=== PATIENT | male | born 1980 | race Caucasian/White ===

== ENCOUNTER 2020-04-24 02:45 | Emergency (ER) | payer OTHER ==
[2020-04-24 03:10] VITALS: BP 134/87; TEMP 98.7; BMI 25.7
[2020-04-24] MEDS ORDERED: diphenhydrAMINE HCL 50 MG CAPSULE PO ONE (03:39)
[2020-04-24] MEDS ORDERED: predniSONE 20 MG TABLET (UD) PO ONE (03:39)
[2020-04-24] MEDS ORDERED: FAMOTIDINE 20 MG TABLET PO ONE (03:39)
--- NOTE | 2020-04-24 03:45 | PDOC ---
History of Present Illness - General Chief Complaint: Rash Stated Complaint: RASH Time Seen by Provider: 04/24/20 03:19 History Source: Patient - History of Present Illness Initial Comments: 04/24/20 03:45 39-year-old male complaining of rash to body with lip swelling. Patient reports he is unsure he if he was bit by a spider. Denies exposure to new food or allergen. No tongue swelling or throat swelling, no difficulty breathing. No past medical history Patient denies taking any medication at home. Past History - Medical History Home Medications: Ambulatory Orders Diphenhydramine HCl [Benadryl -] 25 mg PO Q8H PRN #21 capsule 04/24/20 Famotidine [Pepcid -] 40 mg PO DAILY #7 tablet 04/24/20 Prednisone [Prednisone 50 MG TABLETS] 50 mg PO DAILY #4 tablet 04/24/20 - Psycho-Social/Smoking History Smoking History: Unknown if ever smoked - Substance Abuse Hx (Audit-C & DAST Scrn) How often the patient has a drink containing alcohol: Monthly or less Score: In Men: 4 or > Positive; In Women: 3 or > Positive: 1 Screen Result (Pos requires Nsg. Audit-10AR): Negative *Physical Exam - Vital Signs Last Vital Signs Temp Pulse Resp BP Pulse Ox 98.7 F 85 18 134/87 100 04/24/20 03:01 04/24/20 03:01 04/24/20 03:01 04/24/20 03:01 04/24/20 03:01 - Physical Exam General Appearance: Yes: Appropriately Dressed HEENT: positive: Other (upper lip swelling. throat red, uvula midlibe) Respiratory/Chest: positive: Lungs Clear, Normal Breath Sounds Cardiovascular: positive: Regular Rhythm, Regular Rate Integumentary: positive: Normal Color, Dry, Warm Neurologic: positive: Fully Oriented, Alert, Normal Mood/Affect Medical Decision Making - Medical Decision Making 04/24/20 03:47 Allergic reaction P: benadryl prednisone pepcid Discharge - Discharge Information Problems reviewed: Yes Clinical Impression/Diagnosis: Allergic reaction Qualifiers: Encounter type: initial encounter Qualified Code(s): T78.40XA - Allergy, unspecified, initial encounter Disposition: HOME - Additional Discharge Information Prescriptions: Diphenhydramine HCl [Benadryl -] 25 mg PO Q8H PRN #21 capsule PRN Reason: Allergies Famotidine [Pepcid -] 40 mg PO DAILY #7 tablet Prednisone [Prednisone 50 MG TABLETS] 50 mg PO DAILY #4 tablet - Follow up/Referral - Patient Discharge Instructions Patient Printed Discharge Instructions: DI for General Allergic Reactions Additional Instructions: Take Benadryl every 6 to 8 hours as needed for itching. Take the next dose of prednisone tomorrow. Prednisone as once a day. Take Pepcid once daily. Follow-up with your primary doctor soon as possible Return to the emergency room for any worsening symptoms - Post Discharge Activity Work/Back to School Note: Back to Work
[2020-04-24] MEDS ORDERED: diphenhydrAMINE HCL 25 MG CAPSULE (FP) PO ONE (03:54)
[2020-04-24 04:49] VITALS: PULSE 82
== END 2020-04-24 04:35 | disposition home or self-care (01) ==
LOC: JER 02:45
DX: T78.40XA Allergy, unspecified, initial encounter (principal)
CPT/HCPCS: 99283-25

== ENCOUNTER 2024-05-31 17:49 | Emergency (ER) | payer OTHER ==
[2024-05-31 18:12] VITALS: RESP 18; TEMP 100; BMI 29.0
[2024-05-31 19:09] LABS: BASO % 0.4 % (0-2.0); EOS % 1.3 % (0-4.5); HEMATOCRIT 42.3 % (35.4-49); HEMOGLOBIN 14.7 GM/dL (11.7-16.9); LYMPH % 19.4 % (8-40); MCH 30.6 pg (25.7-33.7); MCHC 34.6 g/dl (32.0-35.9); MEAN CELL VOLUME 88.3 fl (80-96); MEAN PLT VOLUME 8.9 fl (7.5-11.1); MONO % 9.3 % (3.8-10.2); NEUT % 69.6 % (42.8-82.8); PLATELET COUNT 239 10^3/uL (134-434); RBC 4.79 M/mm3 (4.00-5.60); WHITE BLOOD COUNT 10.4 K/mm3 (4.0-10.0)
[2024-05-31 19:36] LABS: POTASSIUM 3.8 mmol/L (3.5-5.1)
[2024-05-31 19:37] LABS: CALCIUM 8.5 mg/dL (8.5-10.1)
[2024-05-31 19:38] LABS: ALBUMIN 3.9 g/dl (3.4-5.0); BLOOD UREA NITROGEN 18.7 mg/dL (7-18)
[2024-05-31 19:41] LABS: CREATININE 0.9 mg/dL (0.55-1.3)
[2024-05-31 19:42] LABS: BILIRUBIN,TOTAL 0.7 mg/dL (0.2-1); TOT PROT 7.9 g/dl (6.4-8.2)
[2024-05-31] MEDS ORDERED: PIPERACILLIN/TAZOB 4.5 GM 4.5 GM/100 ML BAG IVPB ONE (20:13)
[2024-05-31] MEDS: PIPERACILLIN/TAZOBACTAM 4.5 GM VIAL IVPB ONE (20:17)
[2024-05-31] MEDS: ACETAMINOPHEN 325 MG TABLET (FP) PO ONE (20:29)
[2024-05-31] MEDS ORDERED: ACETAMINOPHEN 325 MG TABLET (FP) ONE (20:30)
[2024-05-31 20:48] VITALS: BP 119/68; PULSE 88
[2024-05-31 21:09] LABS: HIV INTERPRETATION NEGATIVE (NEGATIVE)
== END 2024-05-31 21:04 | disposition home or self-care (01) ==
LOC: JERFT 17:49
DX: L03.116 Cellulitis of left lower limb (principal); M79.662 Pain in left lower leg; R50.9 Fever, unspecified
CPT/HCPCS: 36415; 80053; 85025; 86803; 87040; 87389; 93971-TC; 99284-25

== ENCOUNTER 2024-06-02 09:58 | Inpatient (IN) | payer OTHER ==
[2024-06-02 10:06] VITALS: BMI 30.7
[2024-06-02] MEDS ORDERED: IBUPROFEN 600 MG TABLET (FP) PO ONE (11:33)
[2024-06-02 11:55] LABS: BASO % 0.3 % (0-2.0); EOS % 1.1 % (0-4.5); HEMATOCRIT 41.8 % (35.4-49); HEMOGLOBIN 14.4 GM/dL (11.7-16.9); LYMPH % 16.4 % (8-40); MCH 30.7 pg (25.7-33.7); MCHC 34.6 g/dl (32.0-35.9); MEAN CELL VOLUME 88.9 fl (80-96); MONO % 10.8 % (3.8-10.2); NEUT % 71.4 % (42.8-82.8); PLATELET COUNT 244 10^3/uL (134-434); RDW 12.7 % (11.9-15.9); WHITE BLOOD COUNT 10.4 K/mm3 (4.0-10.0)
[2024-06-02] MEDS: IBUPROFEN 600 MG TABLET (FP) PO ONE (11:56)
[2024-06-02] MEDS: VANCOMYCIN PREMIX 1.5 GM 1,500 MG/300 ML BAG IVPB ONE (12:05)
[2024-06-02] MEDS: VANCOMYCIN HCL 1,500 MG in DEXTROSE 5%-WATER - 500 ML IVPB ONE (12:08)
[2024-06-02 12:17] LABS: POTASSIUM 4.2 mmol/L (3.5-5.1)
[2024-06-02 12:19] LABS: ALBUMIN 3.5 g/dl (3.4-5.0); BLOOD UREA NITROGEN 12.4 mg/dL (7-18); CALCIUM 8.8 mg/dL (8.5-10.1)
[2024-06-02 12:23] LABS: CREATININE 0.8 mg/dL (0.55-1.3)
[2024-06-02 12:24] LABS: BILIRUBIN,TOTAL 0.9 mg/dL (0.2-1); TOT PROT 7.8 g/dl (6.4-8.2)
[2024-06-02] MEDS ORDERED: ACETAMINOPHEN 325 MG TABLET (FP) PO PRN (15:22)
[2024-06-02] MEDS: PIPERACILLIN/TAZOB 3.375 GM 50 ML IVPB SCH (18:00)
[2024-06-02] MEDS ORDERED: PIPERACILLIN/TAZOB 3.375 GM 3.375 GM/50 ML BAG IVPB ONE (18:01)
[2024-06-03] MEDS: VANCOMYCIN/WATER FOR INJ (PEG) 1,000 MG/200 ML BAG IVPB SCH (00:02)
[2024-06-03 01:36] VITALS: RESP 18
[2024-06-03 09:17] LABS: BASO % 0.4 % (0-2.0); EOS % 2.8 % (0-4.5); HEMATOCRIT 41.9 % (35.4-49); HEMOGLOBIN 14.5 GM/dL (11.7-16.9); MCH 30.8 pg (25.7-33.7); MCHC 34.6 g/dl (32.0-35.9); MEAN PLT VOLUME 9.2 fl (7.5-11.1); MONO % 7.6 % (3.8-10.2); NEUT % 68.2 % (42.8-82.8); PLATELET COUNT 297 10^3/uL (134-434); RBC 4.71 M/mm3 (4.00-5.60); RDW 12.9 % (11.9-15.9); WHITE BLOOD COUNT 9.1 K/mm3 (4.0-10.0)
[2024-06-03 09:42] LABS: CALCIUM 8.9 mg/dL (8.5-10.1)
[2024-06-03 09:43] LABS: ALBUMIN 3.5 g/dl (3.4-5.0); BLOOD UREA NITROGEN 16.3 mg/dL (7-18); MAGNESIUM 2.5 mg/dL (1.8-2.4)
[2024-06-03 09:46] LABS: CREATININE 0.9 mg/dL (0.55-1.3); PHOSPHOROUS 3.6 mg/dL (2.5-4.9)
[2024-06-03 09:47] LABS: BILIRUBIN,TOTAL 0.8 mg/dL (0.2-1)
[2024-06-03 09:48] LABS: TOT PROT 7.8 g/dl (6.4-8.2)
[2024-06-03] MEDS: VANCOMYCIN 1,000 MG in DEXTROSE 5%-WATER - 250 ML IVPB SCH (11:02)
[2024-06-03] MEDS: CEFAZOLIN 1 GM in DEXTROSE 5%-WATER - 50 ML IVPB SCH (11:03)
[2024-06-03] MEDS: ENOXAPARIN NA (PORCINE) 40 MG/0.4 ML DISP.SYRIN SQ SCH (11:03)
[2024-06-03] MEDS: PIPERACILLIN/TAZOB 3.375 GM 3.375 GM in DEXTROSE 5%-WATER - 50 ML IVPB SCH (11:03)
[2024-06-03] MEDS: DOXYCYCLINE INJECTION 100 MG in DEXTROSE 5%-WATER 100 ML IVPB SCH (11:39)
[2024-06-04 10:03] LABS: BASO % 0.6 % (0-2.0); EOS % 4.4 % (0-4.5); HEMOGLOBIN 14.9 GM/dL (11.7-16.9); LYMPH % 28.1 % (8-40); MCH 31.1 pg (25.7-33.7); MCHC 35.4 g/dl (32.0-35.9); MEAN PLT VOLUME 8.8 fl (7.5-11.1); NEUT % 61.9 % (42.8-82.8); PLATELET COUNT 304 10^3/uL (134-434); RBC 4.78 M/mm3 (4.00-5.60); WHITE BLOOD COUNT 5.7 K/mm3 (4.0-10.0)
[2024-06-04 10:13] LABS: POTASSIUM 4.4 mmol/L (3.5-5.1)
[2024-06-04 10:16] LABS: BLOOD UREA NITROGEN 14.3 mg/dL (7-18); CALCIUM 9.2 mg/dL (8.5-10.1)
[2024-06-04 10:19] LABS: CREATININE 0.8 mg/dL (0.55-1.3)
[2024-06-04 10:50] VITALS: BP 110/71; PULSE 79; TEMP 98.4
== END 2024-06-04 13:19 | disposition home or self-care (01) | DRG 383 ==
LOC: JER 09:58 → JERBED 13:25 → J5S 21:34
PROVIDERS: ATTEND Internal Medicine
DX: L03.116 Cellulitis of left lower limb (principal); M79.605 Pain in left leg; R21 Rash and other nonspecific skin eruption; R50.9 Fever, unspecified; W57.XXXA Bitten or stung by nonvenomous insect and other nonvenomous arthropods, initial encounter; Y93.9 Activity, unspecified; Y92.89 Other specified places as the place of occurrence of the external cause; Y99.9 Unspecified external cause status
CPT/HCPCS: 36415; 71045-TC-FY; 73700-TC-RT; 80048; 80053; 83036; 83735; 84100; 85025; 87040; 93005; 93010; 93971-TC; 99285-25

== ENCOUNTER 2024-06-26 12:00 | Emergency (ER) | payer OTHER ==
[2024-06-26 12:15] VITALS: RESP 18; BMI 31.6
[2024-06-26 15:37] VITALS: BP 115/73; PULSE 79; TEMP 98.4
== END 2024-06-26 16:04 | disposition home or self-care (01) ==
LOC: JER 12:00
DX: L03.116 Cellulitis of left lower limb (principal)
CPT/HCPCS: 93971-TC; 99284-25